=== PATIENT | male | born 1965 | race Caucasian/White ===

== ENCOUNTER 2021-08-09 20:04 | Emergency (ER) | payer BC ==
--- OUTSIDE RECORDS SUMMARY | 2021-08-09 20:06 | XMS REPORT | Continuity of Care Document ---
:1965 Author Organization [facility] t Address [address] [place] [address] Care Team Providers Name Role Phone Terrie Attending Clinician Unavailable Problems This patient has no known problems. Allergies, Adverse Reactions, Alerts Allergy Allergy Status Severity Reaction(s) Onset Inactive Treating Comm ents Source Name Type Date Date Clinician codeine Adverse Active Info Not [facility] Reaction Available [facility] Medications Ordered Filled Start Stop Current Ordering Indication Dosage Frequency Signature Comments Components Source Medication Medication Date Date Medication? Clinician (SIG) Name Name Crestor Crestor Yes Kaur [address] [facility] Lisinopril Lisinopril Yes Kaur [address] [facility] Procedures This patient has no known procedures. Encounters Start End Encounter Admission Attending Care Care Encounter Source Date/Time Date/Time Type Type Clinicians Facility Department ID 2021-08-07 Outpatient RADHA Falcon [facility] [id number] [facility] 09[facility]19:01 Kaur [facility] 2021-06-04 Outpatient RADHA Falcon [facility] [id number] [facility] 14:26:50 Kaur [id number] [facility] 2021-06-04 Outpatient RADHA Falcon [facility] [id number] [facility] 12:09:48 Kaur [id number] [facility] 2021-06-04 Outpatient RADHA Falcon [facility] [id number] [facility] 11:21:39 Kaur [id number] [facility] 2021-08-08 2021-08-08 ambulatory [facility] [id number] [facility] 2021-05-12 2021-05-12 ambulatory [facility] [id number] [facility] 2020-10-30 2020-10-30 Outpatient [facility] [id number] [facility] 2020-07-22 2020-07-22 [facility] [id number] [facility] 2020-04-12 2020-04-12 Outpatient [facility] [id number] [facility] 2020-01-17 2020-01-17 [facility] [id number] [facility] 13:44:00 13:44:00 t [facility]pat[facility] Clin[facility] 2019-10-12 2019-10-12 [facility] [id number] [facility] 11:00:00 11:00:00 t [facility] 2019-09-04 2019-09-04 [facility] [id number] [facility] 15:20:00 15:20:00 t [facility] Medicine l Medicine Outpati ent Clinics 2019-04-25 2019-04-25 [facility] [id number] [facility] 08:26:00 08:26:00 [facility] 2019-04-21 2019-04-21 [facility] [id number] [facility] 10:20:00 10:20:00 t [facility] Results This patient has no known results.
--- NOTE | 2021-08-09 20:56 | ER ---
Nurse's Notes [facility] Name: Guido Chavez Age: 56 yrs Sex: Male : 1965 Arrival Date: 08/09/2021 Time: 20:05 Bed 17 Private MD: Kaur Falcon Diagnosis: Periapical abscess without sinus Presentation: 08/09 20:27 Chief complaint: Patient states: tooth abscess to right side of mouth X 2 days. ss Coronavirus screen: At this time, the client does not indicate any symptoms associated with coronavirus-19. Ebola Screen: No symptoms or risks identified at this time. Initial Sepsis Screen: Does the patient meet any 2 criteria? No. Patient's initial sepsis screen is negative. Does the patient have a suspected source of infection? No. Patient's initial sepsis screen is negative. Risk Assessment: Do you want to hurt yourself or someone else? Patient reports no desire to harm self or others. Onset of symptoms was August 09, 2021 at 20:28. 20:27 Method Of Arrival: Ambulatory ss 20:27 Acuity: TERRELL 4 ss Triage Assessment: 20:30 General: Appears in no apparent distress. comfortable, Behavior is calm, cooperative, ss appropriate for age. Pain: Complains of pain in right buccal mucosa Pain does not radiate. Pain currently is 5 out of 10 on a pain scale. EENT: Reports pain in right buccal mucosa. Neuro: Level of Consciousness is awake, alert, obeys commands, Oriented to person, place, time, situation. Respiratory: Airway is patent Respiratory effort is even, unlabored. Historical: - Allergies: 20:28 Codeine; ss - PMHx: 20:28 Hypertensive disorder; ss - PSHx: 20:30 None; ss - Immunization history:: Adult Immunizations up to date, Client reports receiving the 2nd dose of the Covid vaccine. - Social history:: Smoking status: Patient reports the use of cigarette tobacco products, smokes two packs cigarettes per day. Patient uses alcohol, occasionally. Patient/guardian denies using street drugs. Screenin:46 Abuse screen: Denies threats or abuse. Denies injuries from another. Nutritional tk1 screening: No deficits noted. Tuberculosis screening: No symptoms or risk factors identified. Fall Risk None identified. Assessment: 20:46 General: Appears uncomfortable, well groomed, well developed, well nourished, Behavior tk1 is calm, cooperative, appropriate for age. Pain: Complains of pain in right ear, right nondenominational and right jaw Pain does not radiate. Pain currently is 10 out of 10 on a pain scale. Quality of pain is described as aching, Pain began 2-3 days ago. Is continuous. Neuro: Level of Consciousness is lethargic, Oriented to person, place, time, situation, Appropriate for age Fisher Mussel are equal bilaterally Moves all extremities. Gait is steady, Speech is normal, Edema on right side of face.. Cardiovascular: Denies chest pain, Capillary refill < 3 seconds is brisk in bilateral fingers. Respiratory: Airway is patent Respiratory effort is even, unlabored, Respiratory pattern is regular, symmetrical. GI: No deficits noted. No signs and/or symptoms were reported involving the gastrointestinal system. : No deficits noted. No signs and/or symptoms were reported regarding the genitourinary system. EENT: Dental caries noted in lower right first bicuspid (#28) and lower right second bicuspid (#29) Reports pain. Derm: Skin is red, to right side of face. Musculoskeletal: No deficits noted. No signs and/or symptoms reported regarding the musculoskeletal system. 21:10 Reassessment: Patient up for discharge. After meds given questions as to transportation tk1 home. Patient states, he does not have anyone to drive him home. JUAN LUIS Perales notified. 21:58 Reassessment: Patient's friend arrived for transportation home. tk1 Vital Signs: 20:27 BP 149 / 95; Pulse 102; Resp 18; Temp 98.4(TE); Pulse Ox 98% on R/A; Weight 65.77 kg; ss Height 5 ft. 5 in. (165.10 cm); Pain 7/10; 20:46 BP 159 / 93 RA Supine (auto/reg); Pulse 97 MON; Resp 20 S; Temp 98.2(O); Pulse Ox 96% tk1 on R/A; Pain 10/10; 22:00 Pain 8/10; tk1 20:27 Body Mass Index 24.13 (65.77 kg, 165.10 cm) ED Course: 20:05 Patient arrived in ED. am2 20:05 Kaur Falcon FNP-C is Private Physician. am2 20:28 Triage completed. ss 20:30 Arm band placed on right wrist. ss 20:40 Diaz Quiles NP is PHCP. pm1 20:40 Meliton Beck MD is Attending Physician. pm1 20:45 Kasey Cabrera is Primary Nurse. tk1 20:46 Patient has correct armband on for positive identification. Bed in low position. Call tk1 light in reach. Side rails up X2. Pulse ox on. NIBP on. 20:46 No provider procedures requiring assistance completed. tk1 21:58 Patient did not have IV access during this emergency room visit. tk1 Administered Medications: 21:04 Drug: [place] (HYDROcodone-acetaminophen) 10 mg-325 mg 1 tabs Route: PO; tk1 22:00 Follow up: Pain 8/10; Response: Pain is decreased tk1 21:08 Drug: Clindamycin 600 mg {Note: 2ml in right gluteus and 2ml in left gluteus.} Route: tk1 IM; Site: right gluteus; 22:00 Follow up: Response: No adverse reaction tk1 Outcome: 20:55 Discharge ordered by . pm1 21:58 Discharged to home with friend. tk1 21:58 Condition: stable 21:58 Discharge instructions given to patient, friend, Instructed on discharge instructions, follow up and referral plans. medication usage, Demonstrated understanding of instructions, follow-up care, wound care, Prescriptions given X 1. 22:00 Patient left the ED. tk1 Signatures: Ellen Francisco RN RN Diaz Quiles NP DIRECTOR FAMILY pm1 Lizbeth Whipple am2 Kasey Cabrera tk1 Corrections: (The following items were deleted from the chart) 20:31 20:28 Allergies: No Known Allergies; ss ss 20:31 20:28 Allergies: No Known Allergies; [facility] 20: 20:28 Home Meds: Codeine Oral; [facility] 20: 20:28 Home Meds: gabapentin oral; [facility] 20: 20:28 PMHx: Neuropathy; ss ss
--- NOTE | 2021-08-09 20:56 | EDPHYS ---
Physician Documentation [facility] Name: Guido Chavez Age: 56 yrs Sex: Male : 1965 Arrival Date: 08/09/2021 Time: 20:05 Bed 17 Private MD: Kaur Falcon ED Physician Meliton Beck HPI: 08/09 20:53 This 56 yrs old Male presents to ER via Ambulatory with complaints of Toothache. pm1 20:53 The patient presents with pain, swelling. The problem is located in the upper right pm1 second bicuspid. Onset: The symptoms/episode began/occurred 2 day(s) ago. Duration: The symptoms are continuous. Modifying factors: The symptoms are alleviated by nothing. Associated signs and symptoms: Pertinent negatives: dysphagia, fever, inability to eat, vomiting. Severity of symptoms: in the emergency department the symptoms are actually worse. The patient has experienced similar episodes in the past, a few times. The patient has not recently seen a physician. Historical: - Allergies: 20:28 Codeine; ss - PMHx: 20:28 Hypertensive disorder; ss - PSHx: 20:30 None; ss - Immunization history:: Adult Immunizations up to date, Client reports receiving the 2nd dose of the Covid vaccine. - Social history:: Smoking status: Patient reports the use of cigarette tobacco products, smokes two packs cigarettes per day. Patient uses alcohol, occasionally. Patient/guardian denies using street drugs. ROS: 20:53 Constitutional: Negative for fever, chills, and weight loss. pm1 20:53 Cardiovascular: Negative for chest pain, palpitations, and edema, Respiratory: Negative for shortness of breath, cough, wheezing, and pleuritic chest pain, MS/Extremity: Negative for injury and deformity, Skin: Negative for injury, rash, and discoloration. 20:53 ENT: Positive for dental pain, Negative for sore throat, hoarseness. 20:53 All other systems are negative. Exam: 20:53 Constitutional: This is a well developed, well nourished patient who is awake, alert, pm1 and in no acute distress. Head/Face: Normocephalic, atraumatic. 20:53 Skin: Warm, dry with normal turgor. Normal color with no rashes, no lesions, and no evidence of cellulitis. MS/ Extremity: Pulses equal, no cyanosis. Neurovascular intact. Full, normal range of motion. 20:53 ENT: External ear(s): no acute changes, Ear canal(s): no acute changes, TM's: no acute changes, Mouth: Lips: normal, moist, Oral mucosa: normal, pink and intact, moist, Gums: normal with healthy appearance, abscess, is not appreciated, Dental exam: abscess, is not appreciated, dental caries, that is severe, diffusely, gum swelling, not appreciated, missing teeth, diffusely, pain, specifically in the upper right second bicuspid (#4), Voice: no acute changes. 20:53 Neck: Exam negative for acute changes, External neck: is normal, ROM/movement: is normal, is supple. 20:53 Cardiovascular: Exam negative for acute changes, Rate: normal, Rhythm: regular, Pulses: no pulse deficits are appreciated, Heart sounds: normal. 20:53 Respiratory: Exam negative for acute changes, respiratory distress, shortness of breath. 20:53 Neuro: Exam negative for acute changes, Orientation: is normal, Mentation: is normal, Motor: is normal, moves all fours. Vital Signs: 20:27 BP 149 / 95; Pulse 102; Resp 18; Temp 98.4(TE); Pulse Ox 98% on R/A; Weight 65.77 kg; ss Height 5 ft. 5 in. (165.10 cm); Pain 7/10; 20:46 BP 159 / 93 RA Supine (auto/reg); Pulse 97 MON; Resp 20 S; Temp 98.2(O); Pulse Ox 96% tk1 on R/A; Pain 10/10; 22:00 Pain 8/10; tk1 20:27 Body Mass Index 24.13 (65.77 kg, 165.10 cm) ss MDM: 20:47 Patient medically screened. pm1 20:53 Data reviewed: vital signs. Data interpreted: Pulse oximetry: on room air is 98 %. pm1 Interpretation: normal. 20:54 Counseling: I had a detailed discussion with the patient and/or guardian regarding: the pm1 historical points, exam findings, and any diagnostic results supporting the discharge/admit diagnosis, the need for outpatient follow up, for definitive care, a dentist, Patient reports to me that he has a dentist, to return to the emergency department if symptoms worsen or persist or if there are any questions or concerns that arise at home. 20:54 ED course: Patient gets pain medications from pain management. pm1 Administered Medications: 21:04 Drug: [place] (HYDROcodone-acetaminophen) 10 mg-325 mg 1 tabs Route: PO; tk1 22:00 Follow up: Pain 8/10; Response: Pain is decreased tk1 21:08 Drug: Clindamycin 600 mg {Note: 2ml in right gluteus and 2ml in left gluteus.} Route: tk1 IM; Site: right gluteus; 22:00 Follow up: Response: No adverse reaction tk1 Disposition: 08/10 19:05 Co-signature as Attending Physician, Meliton Beck MD. [facility] Disposition Summary: 08/09/21 20:55 Discharge Ordered Location: Home pm1 Problem: new pm1 Symptoms: have improved pm1 Condition: Stable pm1 Diagnosis - Periapical abscess without sinus pm1 Followup: pm1 - With: Emergency Department - When: As needed - Reason: Worsening of condition Followup: pm1 - With: Private Physician - When: 2 - 3 days - Reason: Recheck today's complaints, Continuance of care, Re-evaluation by your physician Discharge Instructions: - Discharge Summary Sheet pm1 - Dental Abscess pm1 - Dental Pain pm1 - Diet and Dental Disease pm1 Forms: - Medication Reconciliation Form pm1 - Thank You Letter pm1 - Antibiotic Education pm1 - Prescription Opioid Use pm1 Prescriptions: - Clindamycin HCl 300 mg Oral Capsule - take 1 capsule by ORAL route every 6 hours for 10 days; 40 capsule; Refills: 0, pm1 Product Selection Permitted Signatures: Ellen Francisco, RN RN ss Diaz Quiles, OCCUPATIONAL HEALTH NURSE MANAGER OCCUPATIONAL HEALTH NURSE MANAGER pm1 Meliton Beck MD MD [facility] Kasey Cabrera tk1 Corrections: (The following items were deleted from the chart) 08/09 20: 20:28 Allergies: No Known Allergies; [facility] 20: 20:28 Allergies: No Known Allergies; [facility] : 20:28 Home Meds: Codeine Oral; [facility] 20: 20:28 Home Meds: gabapentin oral; [facility] : 20:28 PMHx: Neuropathy; [facility]
[2021-08-09 22:10] VITALS: BP 159/93; TEMP 98.2; O2SAT 96
== END 2021-08-09 22:00 | disposition home or self-care (01) ==
LOC: ER 20:04
DX: K04.7 Periapical abscess without sinus (principal); I10 Essential (primary) hypertension; F17.210 Nicotine dependence, cigarettes, uncomplicated; Z88.5 Allergy status to narcotic agent
CPT/HCPCS: 96372; 99283

== ENCOUNTER 2024-07-28 15:24 | Inpatient (IN) | payer OTHER ==
--- OUTSIDE RECORDS SUMMARY | 2024-07-28 15:28 | XMS REPORT | Continuity of Care Document ---
Author Name Unknown Address [address] [facility] [place] [address] [facility] Address [address] 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 Name Role Phone Kaur Falcon Attending Clinician Unavailable Payers Payer Name Policy Type Policy Number Effective Date Expirati on Date Source UMR 53 [id number] [facility] [place] [facility] 53 [id number] [facility] 6 [id number] [facility] Problems Condition Name Condition Details Condition Category Status Onset Date Resolution Date Last Treatment Date Treating Clinician Comments Source [id number] Dark brown urine Problem [facility] [id number] Gross hematuria Problem [facility] [id number] Cervicalgi a Problem [facility] [id number] Tobacco abuse counseling Problem [facility] [id number] Low back pain Problem [facility] [id number] Other chronic pain Problem [facility] [id number] Chills Problem [facility] [id number] Smoker Problem [facility] [id number] Essential (primary) hypertensi on Problem [facility] [id number] Cough Problem [facility] [id number] Pure hyperchole sterolemia Problem [facility] [id number] Impaired glucose metabolism Problem [facility] [id number] BPH loc w urin obs/LUTS Problem [facility] [id number] Psychophys iological insomnia Problem [facility] [id number] Establishi care with new doctor, encounter for Problem [facility] [id number] Abscess, cheek Problem [facility] Allergies, Adverse Reactions, Alerts Allergy Name Allergy Type Status Severity Reaction(s) Onset Date Inactive Date Treating Clinician Comments Source Codeine Codeine Active Unknown [facility] Social History Social Habit Start Date Stop Date Quantity Comments Source History of Tobacco Use Current Smoker [facility] Sex Assigned At [facility] Smoking Status Start Date Stop Date Source Current Smoker 2024-05-29 00:00:00 [facility] Heavy tobacco smoker 2023-07-25 00:00:00 [facility] Medications Ordered Medication Name Filled Medication Name Start Date Stop Date Current Medication? Ordering Clinician Indication Dosage Frequency Signature (SIG) Comments Components Source Diclofenac Sodium 75 MG Diclofenac Sodium 75 MG No Diclofenac Sodium 75 MG HYDROcodone -Acetaminop hen 10-325 MG HYDROcodone -Acetaminop hen 10-325 MG No HYDROcodon e-Acetamin ophen 10-325 MG Zolpidem Tartrate 10 MG Zolpidem Tartrate 10 MG No 1{table t_at_be dtime_a s_neede d} QD Zolpidem Tartrate 10 MG Gabapentin 600 MG Gabapentin 600 MG No Gabapentin 600 MG Lisinopril 10 MG Lisinopril 10 MG No 1{table t} QD Lisinopril 10 MG traMADol HCl 50 MG traMADol HCl 50 MG No 1{table t_as_ne eded} BID traMADol HCl 50 MG tiZANidine HCl 2 MG tiZANidine HCl 2 MG No tiZANidine HCl 2 MG Famotidine 20 MG Famotidine 20 MG No 1{table t_at_be dtime_a s_neede d} QD Famotidine 20 MG Omeprazole 40 MG Omeprazole 40 MG No 1{capsu le} BID Omeprazole 40 MG Rosuvastati n Calcium 10 MG Rosuvastati n Calcium 10 MG No 1{table t} Rosuvastat in Calcium 10 MG Iron (Ferrous Sulfate) 325 (65 Fe) MG Iron (Ferrous Sulfate) 325 (65 Fe) MG No 1{table t} Iron (Ferrous Sulfate) 325 (65 Fe) MG Zinc 30 MG Zinc 30 MG No 1{ table t} QD Zinc 30 MG Immunizations Ordered Immunization Name Filled Immunization Name Date Status Comments Source COVID-19 Vaccine (Davie) COVID-19 Vaccine (Davie) 2020-08-13 15:10:00 Completed [facility] COVID-19 Vaccine (Davie) COVID-19 Vaccine (Davie) 2020-08-13 15:10:00 Completed [facility] COVID-19 Vaccine (Davie) COVID-19 Vaccine (Davie) 2020-08-13 15:10:00 Completed [facility] COVID-19 Vaccine (Davie) COVID-19 Vaccine (Davie) Unknown Completed [facility] COVID-19 Vaccine (Davie) COVID-19 Vaccine (Davie) Unknown Completed [facility] COVID-19 Vaccine (Davie) COVID-19 Vaccine (Davie) Unknown Completed [facility] COVID-19 Vaccine (Davie) COVID-19 Vaccine (Davie) Unknown Completed [facility] COVID-19 Vaccine (Davie) COVID-19 Vaccine (Davie) Unknown Completed [facility] Vital Signs Vital Name Observation Time Observation Value Comments S ource height 2024-05-29 09:40:00 66 [in_i] Commo n [facility] weight 2024-05-29 09:40:00 132.0 [lb_av] Co mmon [facility] temperature 2024-05-29 09:40:00 98.6 [degF] Com mon [facility] bmi 2024-05-29 09:40:00 21.3 kg/m2 Commo n [facility] oximetry 2024-05-29 09:40:00 99 % Commo n [facility] respiratory rate 2024-05-29 09:40:00 16 /min Common [facility] blood pressure systolic 2024-05-29 09:40:00 138 mm[Hg] [facility] blood pressure diastolic 2024-05-29 09:40:00 85 mm[Hg] [facility] height 2023-12-02 09:40:00 66 [in_i] Commo n [facility] weight 2023-12-02 09:40:00 132.2 [lb_av] Co [facility] temperature 2023-12-02 09:40:00 99.0 [degF] Com mon [facility] bmi 2023-12-02 09:40:00 21.34 kg/m2 Comm on [facility] oximetry 2023-12-02 09:40:00 95 % Commo n [facility] respiratory rate 2023-12-02 09:40:00 16 /min [facility] blood pressure systolic 2023-12-02 09:40:00 119 mm[Hg] Common [facility] blood pressure diastolic 2023-12-02 09:40:00 84 mm[Hg] Common [facility] height 2023-04-20 11:20:00 66 [in_i] Commo n [facility] weight 2023-04-20 11:20:00 148 [lb_av] Comm on [facility] bmi 2023-04-20 11:20:00 23.89 kg/m2 Comm on [facility] height 2022-12-29 09:40:00 66 [in_i] Commo n [facility] weight 2022-12-29 09:40:00 128.2 [lb_av] Co mmon [facility] temperature 2022-12-29 09:40:00 97.2 [degF] Com [facility] bmi 2022-12-29 09:40:00 20.69 kg/m2 Comm on [facility] oximetry 2022-12-29 09:40:00 95 % Commo n [facility] respiratory rate 2022-12-29 09:40:00 15 /min [facility] blood pressure systolic 2022-12-29 09:40:00 100 mm[Hg] Common [facility] blood pressure diastolic 2022-12-29 09:40:00 62 mm[Hg] Common [facility] height 2022-10-23 10:20:00 66 [in_i] Commo n [facility] weight 2022-10-23 10:20:00 127.2 [lb_av] Co [facility] temperature 2022-10-23 10:20:00 99.0 [degF] Com [facility] bmi 2022-10-23 10:20:00 20.53 kg/m2 Comm on [facility] oximetry 2022-10-23 10:20:00 95 % Commo n [facility] respiratory rate 2022-10-23 10:20:00 16 /min [facility] blood pressure systolic 2022-10-23 10:20:00 137 mm[Hg] [facility] blood pressure diastolic 2022-10-23 10:20:00 80 mm[Hg] [facility] height 2022-04-22 10:40:00 66 [in_i] Commo n [facility] weight 2022-04-22 10:40:00 139.2 [lb_av] Co [facility] temperature 2022-04-22 10:40:00 98.2 [degF] Com [facility] bmi 2022-04-22 10:40:00 22.47 kg/m2 Comm on [facility] oximetry 2022-04-22 10:40:00 97 % Commo n [facility] respiratory rate 2022-04-22 10:40:00 17 /min Common [facility] blood pressure systolic 2022-04-22 10:40:00 120 mm[Hg] [facility] blood pressure diastolic 2022-04-22 10:40:00 68 mm[Hg] Common [facility] height 2022-01-21 10:00:00 66 [in_i] Commo n [facility] weight 2022-01-21 10:00:00 142.2 [lb_av] Co mmon [facility] temperature 2022-01-21 10:00:00 98.2 [degF] Com [facility] bmi 2022-01-21 10:00:00 22.95 kg/m2 Comm on [facility] oximetry 2022-01-21 10:00:00 96 % Commo n [facility] respiratory rate 2022-01-21 10:00:00 16 /min [facility] blood pressure systolic 2022-01-21 10:00:00 131 mm[Hg] [facility] blood pressure diastolic 2022-01-21 10:00:00 71 mm[Hg] Common [facility] height 2021-08-19 15:40:00 66 [in_i] Commo n [facility] weight 2021-08-19 15:40:00 138 [lb_av] Comm on [facility] temperature 2021-08-19 15:40:00 98.2 [degF] Com mon [facility] bmi 2021-08-19 15:40:00 22.27 kg/m2 Comm on [facility] oximetry 2021-08-19 15:40:00 99 % Commo n [facility] respiratory rate 2021-08-19 15:40:00 18 /min Common [facility] blood pressure systolic 2021-08-19 15:40:00 111 mm[Hg] [facility] blood pressure diastolic 2021-08-19 15:40:00 66 mm[Hg] [facility] oximetry 2021-08-13 09:40:00 99 % Commo n [facility] respiratory rate 2021-08-13 09:40:00 16 /min [facility] blood pressure systolic 2021-08-13 09:40:00 136 mm[Hg] Common [facility] blood pressure diastolic 2021-08-13 09:40:00 73 mm[Hg] [facility] height 2021-08-13 09:40:00 66 [in_i] Commo n [facility] weight 2021-08-13 09:40:00 136.2 [lb_av] Co [facility] temperature 2021-08-13 09:40:00 99.7 [degF] Com [facility] bmi 2021-08-13 09:40:00 21.98 kg/m2 Comm on [facility] height 2021-08-08 08:20:00 66 [in_i] Commo n [facility] weight 2021-08-08 08:20:00 141.6 [lb_av] Co [facility] temperature 2021-08-08 08:20:00 97.2 [degF] Com [facility] bmi 2021-08-08 08:20:00 22.85 kg/m2 Comm on [facility] oximetry 2021-08-08 08:20:00 96 % Commo n [facility] respiratory rate 2021-08-08 08:20:00 16 /min [facility] height 2021-05-12 14:00:00 66 [in_i] Commo n [facility] weight 2021-05-12 14:00:00 145 [lb_av] Comm on [facility] temperature 2021-05-12 14:00:00 98.1 [degF] Com mon [facility] bmi 2021-05-12 14:00:00 23.4 kg/m2 Commo n [facility] oximetry 2021-05-12 14:00:00 97 % Commo n [facility] respiratory rate 2021-05-12 14:00:00 16 /min [facility] blood pressure systolic 2021-05-12 14:00:00 132 mm[Hg] [facility] blood pressure diastolic 2021-05-12 14:00:00 76 mm[Hg] [facility] Encounters Start Date/Time End Date/Time Encounter Type Admission Type Attending [facility] Facility Care Department Encounter ID Source 2024-05-29 09:40:00 Outpatient [facility] [id number] [facility] 2024-05-25 08:05:00 Outpatient Kaur Falcon [facility] [id number] [facility] 2024-05-12 08:44:00 Outpatient [facility] [id number] [facility] 2024-03-10 08:43:00 Outpatient [facility] [id number] [facility] 2023-12-02 09:50:01 Outpatient Kaur Falcon [facility] [id number] [facility] 2023-11-19 10:02:00 Outpatient [facility] garcia [facility] [id number] [facility] 2023-07-22 09:42:00 Outpatient [facility] g[facility] [id number] [facility] 2023-02-18 08:35:00 Outpatient [place] garcia [facility] [id number] [facility] 2022-10-23 10:24:00 Outpatient Kaur Falcon [facility]C [facility] [id number] [facility] 2022-07-16 16:42:00 Outpatient Kaur Falcon [facility]C [facility] [id number] [facility] 2022-04-20 10:18:01 Outpatient Kaur Falcon [facility] [id number] [facility] 2022-01-19 10:34:00 Outpatient Kaur Falcon [facility] [id number] [facility] 2021-12-30 14:34:01 Outpatient Kaur Falcon [facility] [id number] [facility] 2021-08-15 10:03:01 Outpatient Kaur Falcon [facility] [id number] [facility] 2021-08-11 09:38:00 Outpatient Kaur Falcon [facility]C [facility] [id number] [facility] 2021-08-07 09:19:01 Outpatient Kaur Falcon [facility] [id number] [facility] 2021-06-04 14:26:50 Outpatient Kaur Falcon [facility] [id number] [facility] 2021-06-04 12:09:48 Outpatient Kaur Falcon [facility] [id number] [facility] 2021-06-04 11:21:39 Outpatient Kaur Falcon [facility]C [facility] [id number] [facility] 2024-05-29 00:00:00 2024-05-29 00:00:00 OFFICE VISIT ESTAB PT LEVEL 4 [facility]LMLC STL[facility]C [id number] [facility] 2024-05-15 00:00:00 2024-05-15 00:00:00 (TEL) STLMLC STL[facility]C [id number] [facility] 2023-12-09 00:00:00 2023-12-09 00:00:00 (TEL) STLMLC STL[facility]C [id number] [facility] 2023-12-02 00:00:00 2023-12-02 00:00:00 OFFICE VISIT ESTAB PT LEVEL 4 [facility]LMLC STL[facility]C [id number] [facility] 2023-11-04 00:00:00 2023-11-04 00:00:00 (TEL) STLMLC STLMLC [id number] [facility] 2023-04-20 00:00:00 2023-04-20 00:00:00 OFFICE VISIT ESTAB PT LEVEL 3 [facility]C STL[facility]C [id number] [facility] 2022-12-29 00:00:00 2022-12-29 00:00:00 OFFICE VISIT ESTAB PT LEVEL 3 [facility]LMLC STL[facility]C [id number] [facility] 2022-12-29 00:00:00 2022-12-29 00:00:00 (TEL) STLMLC STLMLC [id number] [facility] 2022-10-23 00:00:00 2022-10-23 00:00:00 OFFICE VISIT ESTAB PT LEVEL 4 [facility]LMLC STL[facility]C [id number] [facility] 2022-04-23 00:00:00 2022-04-23 00:00:00 (TEL) STLMLC STL[facility]C [id number] [facility] 2022-04-22 00:00:00 2022-04-22 00:00:00 OFFICE VISIT ESTAB PT LEVEL 4 [facility]C STL[facility]C [id number] [facility] 2022-01-21 00:00:00 2022-01-21 00:00:00 OFFICE VISIT EST PT LEVEL 3 [facility]C STL[facility]C [id number] [facility] 2021-08-19 00:00:00 2021-08-19 00:00:00 OFFICE VISIT EST PT LEVEL 3 [facility]C STL[facility]C [id number] [facility] 2021-08-13 00:00:00 2021-08-13 00:00:00 OFFICE VISIT EST PT LEVEL 3 [facility]C STL[facility] [id number] [facility] 2021-08-08 00:00:00 2021-08-08 00:00:00 OFFICE VISIT ESTAB PT LEVEL 4 [facility]C [facility] [id number] [facility] 2021-05-12 00:00:00 2021-05-12 00:00:00 OFFICE VISIT ESTAB PT LEVEL 4 [facility]C [facility]C [id number] [facility] 2020-10-30 00:00:00 2020-10-30 00:00:00 Outpatient [facility]C [facility] [id number] [facility] 2020-07-22 00:00:00 2020-07-22 00:00:00 Outpatient [facility] [id number] [facility] 2020-04-12 00:00:00 2020-04-12 00:00:00 Outpatient [facility]C [facility] [id number] [facility] 2020-01-17 13:44:00 2020-01-17 13:44:00 [facility] [id number] [facility] 2019-10-12 11:00:00 2019-10-12 11:00:00 [facility] [id number] [facility] 2019-09-04 15:20:00 2019-09-04 15:20:00 [facility] [id number] [facility] 2019-04-25 08:26:00 2019-04-25 08:26:00 [facility] [id number] [facility] 2019-04-21 10:20:00 2019-04-21 10:20:00 [facility] [id number] [facility] Results Test Description Test Time Test Comments Results Result Co mments Source COMPREHENSIVE METABOLIC PANEL(CMP)2023-01-08 00:00:00* Test Item Value Reference Range Interpretation Comme nts ALBUMIN (test code = 1751-7) 3.9 g/dL See_Comment N [Automated messa ge] The system which generated this result transmitted reference range: 3.6-5.1 g/dL. The reference range was not used to interpret this result as normal/abnormal. ALBUMIN/GLOBULIN RATIO (test code = 1759-0) 1.7 (calc) See_Comment N [Automated messa ge] The system which generated this result transmitted reference range: 1.0-2.5 (calc). The reference range was not used to interpret this result as normal/abnormal. ALKALINE PHOSPHATASE (test code = 6768-6) 64 U/L See_Comment N [Automated message] The system which generated this result transmitted reference range: 35-144 U/L. The reference range was not used to interpret this result as normal/abnormal. ALT (test code = 1742-6) 23 U/L See_Comment N [Automated messa ge] The system which generated this result transmitted reference range: 9-46 U/L. The reference range was not used to interpret this result as normal/abnormal. AST (test code = 1920-8) 19 U/L See_Comment N [Automated messa ge] The system which generated this result transmitted reference range: 10-35 U/L. The reference range was not used to interpret this result as normal/abnormal. BILIRUBIN, TOTAL (test code = 1975-2) 0.3 mg/dL See_Comment N [Automated message] The system which generated this result transmitted reference range: 0.2-1.2 mg/dL. The reference range was not used to interpret this result as normal/abnormal. BUN/CREATININE RATIO (test code = 3097-3) SEE NOTE: (calc) See_Comment [Automated message] The system which generated this result transmitted reference range: 6-22 (calc). The reference range was not used to interpret this result as normal/abnormal. CALCIUM (test code = 43954-8) 9.1 mg/dL See_Comment N [Automated messa ge] The system which generated this result transmitted reference range: 8.6-10.3 mg/dL. The reference range was not used to interpret this result as normal/abnormal. CARBON DIOXIDE (test code = 2027-9) 27 mmol/L See_Comment N [Automated messa ge] The system which generated this result transmitted reference range: 20-32 mmol/L. The reference range was not used to interpret this result as normal/abnormal. CHLORIDE (test code = 5-0) 106 mmol/L See_Comment N [Automated messa ge] The system which generated this result transmitted reference range: 98-110 mmol/L. The reference range was not used to interpret this result as normal/abnormal. CREATININE (test code = 2160-0) 0.99 mg/dL See_Comment N [Automated messa ge] The system which generated this result transmitted reference range: 0.70-1.30 mg/dL. The reference range was not used to interpret this result as normal/abnormal. GLOBULIN (test code = 19628-1) 2.3 g/dL (calc) See_Comment N [Automated message] The system which generated this result transmitted reference range: 1.9-3.7 g/dL (calc). The reference range was not used to interpret this result as normal/abnormal. GLUCOSE (test code = 2345-7) 88 mg/dL See_Comment N [Automated messa ge] The system which generated this result transmitted reference range: 65-139 mg/dL. The reference range was not used to interpret this result as normal/abnormal. POTASSIUM (test code = 2823-3) 4.3 mmol/L See_Comment N [Automated messa ge] The system which generated this result transmitted reference range: 3.5-5.3 mmol/L. The reference range was not used to interpret this result as normal/abnormal. PROTEIN, TOTAL (test code = 2885-2) 6.2 g/dL See_Comment N [Automated messa ge] The system which generated this result transmitted reference range: 6.1-8.1 g/dL. The reference range was not used to interpret this result as normal/abnormal. SODIUM (test code = 2951-2) 140 mmol/L See_Comment N [Automated messa ge] The system which generated this result transmitted reference range: 135-146 mmol/L. The reference range was not used to interpret this result as normal/abnormal. UREA NITROGEN (BUN) (test code = 3094-0) 14 mg/dL See_Comment N [Automated message] The system which generated this result transmitted reference range: 7-25 mg/dL. The reference range was not used to interpret this result as normal/abnormal. CULTURE, [id number] 00:00:00* Test Item Value Reference Range Interpretation Comme nts CULTURE, URINE (test code = 630-4) SPECIMEN NUMBER: [id number] COMPREHENSIVE METABOLIC PANEL(CMP)2022-11-09 00:00:00* Test Item Value Reference Range Interpretation Comme nts ALBUMIN (test code = 1751-7) 4.1 g/dL See_Comment N [Automated message] The system which generated this result transmitted reference range: 3.6-5.1 g/dL. The reference range was not used to interpret this result as normal/abnormal. ALBUMIN/GLOBULIN RATIO (test code = 1759-0) 1.7 (calc) See_Comment N [Automated message] The system which generated this result transmitted reference range: 1.0-2.5 (calc). The reference range was not used to interpret this result as normal/abnormal. ALKALINE PHOSPHATASE (test code = 6768-6) 72 U/L See_Comment N [Automated message] The system which generated this result transmitted reference range: 35-144 U/L. The reference range was not used to interpret this result as normal/abnormal. ALT (test code = 1742-6) 14 U/L See_Comment N [Automated message] The system which generated this result transmitted reference range: 9-46 U/L. The reference range was not used to interpret this result as normal/abnormal. AST (test code = 1920-8) 17 U/L See_Comment N [Automated message] The system which generated this result transmitted reference range: 10-35 U/L. The reference range was not used to interpret this result as normal/abnormal. BILIRUBIN, TOTAL (test code = 1975-2) 0.3 mg/dL See_Comment N [Automated message] The system which generated this result transmitted reference range: 0.2-1.2 mg/dL. The reference range was not used to interpret this result as normal/abnormal. BUN/CREATININE RATIO (test code = 3097-3) NOT APPLICABLE (calc) See_Comment [Automated message] The system which generated this result transmitted reference range: 6-22 (calc). The reference range was not used to interpret this result as normal/abnormal. CALCIUM (test code = 98663-0) 8.7 mg/dL See_Comment N [Automated message] The system which generated this result transmitted reference range: 8.6-10.3 mg/dL. The reference range was not used to interpret this result as normal/abnormal. CARBON DIOXIDE (test code = 8-9) 25 mmol/L See_Comment N [Automated message] The system which generated this result transmitted reference range: 20-32 mmol/L. The reference range was not used to interpret this result as normal/abnormal. CHLORIDE (test code = 2075-0) 103 mmol/L See_Comment N [Automated message] The system which generated this result transmitted reference range: 98-110 mmol/L. The reference range was not used to interpret this result as normal/abnormal. CREATININE (test code = 2160-0) 1.05 mg/dL See_Comment N [Automated message] The system which generated this result transmitted reference range: 0.70-1.30 mg/dL. The reference range was not used to interpret this result as normal/abnormal. GLOBULIN (test code = 67777-5) 2.4 g/dL (calc) See_Comment N [Automated message] The system which generated this result transmitted reference range: 1.9-3.7 g/dL (calc). The reference range was not used to interpret this result as normal/abnormal. GLUCOSE (test code = 2345-7) 99 mg/dL See_Comment N [Automated message] The system which generated this result transmitted reference range: 65-99 mg/dL. The reference range was not used to interpret this result as normal/abnormal. POTASSIUM (test code = 2823-3) 4.6 mmol/L See_Comment N [Automated message] The system which generated this result transmitted reference range: 3.5-5.3 mmol/L. The reference range was not used to interpret this result as normal/abnormal. PROTEIN, TOTAL (test code = 2885-2) 6.5 g/dL See_Comment N [Automated message] The system which generated this result transmitted reference range: 6.1-8.1 g/dL. The reference range was not used to interpret this result as normal/abnormal. SODIUM (test code = 2951-2) 137 mmol/L See_Comment N [Automated message] The system which generated this result transmitted reference range: 135-146 mmol/L. The reference range was not used to interpret this result as normal/abnormal. UREA NITROGEN (BUN) (test code = 3094-0) 24 mg/dL See_Comment N [Automated message] The system which generated this result transmitted reference range: 7-25 mg/dL. The reference range was not used to interpret this result as normal/abnormal. Abdomen 1 View (KUB)Abdomen 1 View (KUB)
[2024-07-28 17:24] LABS: Absolute Basophils 0.1 K/uL (0-0.5); Absolute Lymphocytes (CBC) 1.9 K/uL (0.7-4.9); Absolute Monocytes 0.7 K/uL (0.1-1.3); Absolute Neutrophil 14.1 K/uL (1.8-8.0); Basophils % 0.5 % (0-1.3); Eosinophils % 0.2 % (0-4.4); Hematocrit 44.1 % (39.6-49.0); Hemoglobin 14.9 g/dL (13.6-17.9); Lymphocytes % 11.3 % (15.3-44.8); MCH 32.7 pg (27.0-35.0); MCHC 33.8 g/dL (32.0-36.0); MCV 96.7 fL (80-100); MPV 6.5 fL (7.6-11.3); Monocytes % 4.2 % (3.3-12.3); Neutrophils % 83.8 % (41.7-73.7); Platelets 740 thou/uL (152-406); RBC Red Blood Cell Count 4.56 M/uL (4.33-5.43); Red Cell Distribution Width 14.3 % (12.1-15.2)
[2024-07-28 17:31] LABS: Albumin 3.9 g/dL (3.4-5.0); Albumin/Globulin Ratio 0.8 (1.1-1.8); Anion Gap 9.3 mEq/L (5.0-15.0); Bilirubin Total 0.4 mg/dL (0.2-1.0); Globulin 4.7 g/dL (2.3-3.5); Potassium 4.3 mEq/L (3.5-5.1); Protein, Total 8.6 g/dL (6.4-8.2)
--- NOTE | 2024-07-28 17:41 | RAD REPORT ---
EXAMINATION: CT ABDOMEN AND PELVIS WITH CONTRAST CLINICAL INDICATION: ABD PAIN TECHNIQUE: CT abdomen and pelvis was performed, after the administration of IV contrast, as per [facility] protocol. Axial, sagittal and coronal reconstructions were obtained. One or more of the following dose reduction techniques were used: Automated exposure control, adjustment of the mA and k V according to patient size, and iterative reconstruction. Unless otherwise specified, incidental findings do not require dedicated imaging follow-up. COMPARISON: No prior exam. FINDINGS: LOWER CHEST: The visualized lung bases are clear. LIVER: Normal in size and contour. No focal lesion. Grossly unremarkable gallbladder. SPLEEN: Normal size. No focal lesion. PANCREAS: No mass, ductal dilation, or julee-pancreatic fluid. ADRENALS: Normal; no mass. KIDNEYS: Normal size and contour. No hydronephrosis. GASTROINTESTINAL TRACT: No evidence of free air, significant intra-abdominal free fluid, bowel obstru ction or abscess. ICM segment of the sigmoid colon is decompressed and thickened with large diverticula. APPENDIX: Normal appendix. LYMPH NODES: No lymphadenopathy. MUSCULOSKELETAL: No acute or suspicious osseous abnormality. ADDITIONAL FINDINGS: Aortoiliac atherosclerosis. IMPRESSION: No acute finding demonstrated. There is a 5 cm segment of the sigmoid colon which is moderately thickened with multiple large divert icula present. This area would benefit by direct visualization with follow-up nonemergent colonoscopy.
[2024-07-28] MEDS ORDERED: MORPHINE 4 MG/ML SYR ONE ×2 (18:42→19:18)
[2024-07-28] MEDS ORDERED: MAGNES/ALUMIN/SIMET 30ML UCUP ONE (18:42)
[2024-07-28] MEDS ORDERED: ONDANSETRON 4 MG/2 ML VIAL ONE (18:42)
[2024-07-28] MEDS ORDERED: LIDOCAINE VISCOUS 2% 10ML ORAL SOLN ONE (18:42)
[2024-07-28] MEDS ORDERED: FAMOTIDINE 20 MG/2 ML VIAL IV ONE (18:43)
[2024-07-28] MEDS ORDERED: NA CHLORIDE 0.9% 1,000 ML ONE ×2 (18:43→23:14)
[2024-07-28 19:03] LABS: Sqamous Epithelial None Seen /HPF (None Seen); Urine Bacteria None Seen /HPF (<20); Urine Bilirubin NEGATIVE (Negative); Urine Blood 2+ (Negative); Urine Clarity Clear (Clear); Urine Color Colorless (Yellow); Urine Crystals Unidentified Few /HPF (None Seen); Urine Culture Reflex Order NOT NEEDED; Urine Glucose NEGATIVE (Negative); Urine Ketones 1+ (Negative); Urine Microscopic Reflex YN ORDER UMIC; Urine Mucus Slight /HPF (None Seen); Urine Nitrite NEGATIVE (Negative); Urine Protein NEGATIVE (Negative); Urine Urobilinogen Normal (Normal); Urine WBC <5 /HPF (<5); Urine Yeast (Budding) Trace /HPF (None Seen)
[2024-07-28 19:06] LABS: Specific Gravity > 1.030 (1.005-1.030)
[2024-07-28] MEDS ORDERED: lisinopriL 10 MG TAB ONE (19:18)
[2024-07-28 20:58] LABS: PT Prothrombin Time 12.4 SECONDS (10-13.0); Protime INR 1.09
[2024-07-28] MEDS ORDERED: METRONIDAZOLE 500mg IVPB 500 MG/100 ML BAG IV ONE (21:13)
[2024-07-28] MEDS ORDERED: CIPROFLOXACIN 400mg IV 400 MG/200 ML BAG IV ONE (21:13)
--- NOTE | 2024-07-28 22:18 | ER ---
Nurse's Notes [facility] Name: Guido Chavez Age: 59 yrs Sex: Male : 1965 Arrival Date: 07/28/2024 Time: 15:24 Bed 16 Private MD: Diagnosis: Colitis Presentation: 07/28 16:55 Chief complaint: Patient states: had egd done earlier today , hx of ulcers, having iw worse abd pain and has not been eating for 2 days. Coronavirus screen: At this time, the client does not indicate any symptoms associated with coronavirus-19. Ebola Screen: No symptoms or risks identified at this time. Initial Sepsis Screen: Does the patient meet any 2 criteria? HR > 90 bpm. Does the patient have a suspected source of infection? No. Patient's initial sepsis screen is negative. Risk Assessment: Do you want to hurt yourself or someone else? Patient reports no desire to harm self or others. Onset of symptoms was July 26, 2024. 16:55 Acuity: TERRELL 3 iw 16:55 Method Of Arrival: Ambulatory iw Historical: - Allergies: 16:56 Codeine; iw - PMHx: 16:56 Hypertensive disorder; iw - Immunization history:: Adult Immunizations not up to date. - Infectious Disease History:: Denies. - Social history:: Smoking status: Patient reports the use of cigarette tobacco products, smokes two packs cigarettes per day. Screenin:[facility] ED Fall Risk Assessment (Adult) History of falling in the last 3 months, me1 including since admission No falls in past 3 months (0 pts) Confusion or Disorientation No (0 pts) Intoxicated or Sedated No (0 pts) Impaired Gait No (0 pts) Mobility Assist Device Used No (0 pt) Altered Elimination No (0 pt) Score/Fall Risk Level 0 - 2 = Low Risk Maintained a safe environment, Provided non-skid footwear, Hourly rounding (assess needs \T\ fall precautionary measures) done. Abuse screen: Denies threats or abuse. Nutritional screening: No deficits noted. Tuberculosis screening: No symptoms or risk factors identified. Assessment: 19:01 General: Appears uncomfortable, slender, well developed, Behavior is calm, cooperative, me1 appropriate for age, Reports had egd done earlier today , hx of ulcers, having worse abd pain and has not been eating for 2 days. Pain: Complains of pain in abdomen Pain does not radiate. Pain currently is 7 out of 10 on a pain scale. Quality of pain is described as burning, sharp, Pain began gradually, 2-3 days ago. Is continuous. Neuro: Level of Consciousness is awake, alert, obeys commands, Oriented to person, place, time, situation, Appropriate for age. Cardiovascular: Patient's skin is warm and dry. Respiratory: Airway is patent Respiratory effort is even, unlabored, Respiratory pattern is regular, symmetrical. GI: Abdomen is non-distended, Bowel sounds present X 4 quads. Abd is soft X 4 quads. GI: Reports upper abdominal pain, anorexia. : No signs and/or symptoms were reported regarding the genitourinary system. EENT: No signs and/or symptoms were reported regarding the EENT system. Derm: Skin is intact, is healthy with good turgor, Skin is pink, warm \T\ dry. Musculoskeletal: No signs and/or symptoms reported regarding the musculoskeletal system. Vital Signs: 16:55 BP 185 / 105; Pulse 112; Resp 18; Temp 99; Pulse Ox 99% on R/A; Weight 67.13 kg; Height iw 5 ft. 6 in. ; Pain 7/10; 19:00 BP 182 / 107; Pulse 87; Resp 19; Pulse Ox 96% ; me1 19:22 Pain 6/10; hb 19:23 Pain 6/10; hb 20:00 BP 181 / 106; Pulse 90; Resp 17; Pulse Ox 97% ; me1 21:00 BP 154 / 93; Pulse 92; Resp 17; Pulse Ox 97% ; me1 22:00 BP 156 / 88; Pulse 85; Resp 18; Pulse Ox 96% ; me1 07/29 00:00 BP 127 / 83; Pulse 85; Resp 18; Pulse Ox 96% ; cp4 01:00 BP 128 / 83; Pulse 86; Resp 18; Pulse Ox 96% ; cp4 02:44 BP 132 / 91; Pulse 88; Resp 18; Pulse Ox 95% ; cp4 07/28 16:55 Body Mass Index 23.89 (67.13 kg, 167.64 cm) iw 07/28 16:55 Pain Scale: Adult iw 19:22 Pain Scale: Adult hb 19:23 Pain Scale: Adult hb ED Course: 07/28 15:25 Patient arrived in ED. im 15:28 Gerri Sher, ENMANUEL is [facility]. kb 15:28 Arben Ulloa MD is Attending Physician. kb 16:55 Radiology exam delayed due to lab results not completed at this time. (BUN/Creatinine) jc4 IV insertion attempt and/or patient not having appropriate IV at this time. 16:56 Triage completed. iw 17:31 CT Abd/Pelvis - IV Contrast Only In Process Unspecified. EDMS 18:39 Cece Gaspar, RN is Primary Nurse. hb 18:55 Urine collected: clean catch specimen, clear. Urinalysis w/ reflexes Sent. me1 19:01 No provider procedures requiring assistance completed. Inserted saline lock: 22 gauge me1 in right antecubital area, using aseptic technique. 19:01 Patient has correct armband on for positive identification. Bed in low position. Call me1 light in reach. Side rails up X 1. Provided Education on: POC. Verbalized understanding.. Client placed on continuous cardiac and pulse oximetry monitoring. NIBP monitoring applied. alarm security or surveillance monitor on. Pulse ox on. NIBP on. 20:37 Initial lab(s) drawn, by sc, sent to lab. First set of blood cultures drawn by sc. me1 20:42 Ptt, Activated Sent, Protime (+inr), Lactate w/ 2H reflex if indic., Blood Culture me1 Adult (2) Sent. 20:45 Second set of blood cultures drawn by sc. sc1 22:18 Navi Fierro MD is Hospitalizing Provider. kb 07/29 02:38 Patient admitted, IV remains in place. cp4 02:39 Arm band placed on right wrist. Patient placed in waiting room. cp4 Administered Medications: 07/28 18:54 Drug: Famotidine IVP 20 mg IVP once; dilute with 10 mL 0.9% NaCl; give over 2 minutes hb Route: IVP; Site: right antecubital; 19:22 Follow up: Response: No adverse reaction hb 18:54 Drug: GI Cocktail without - (Maalox PO 30 ml, Lidocaine Mucous Membrane 2 % 15 hb ml) PO once Route: PO; 19:22 Follow up: Pain 6/10 Adult; Response: No adverse reaction; Pain is decreased hb 18:55 Drug: Ondansetron IVP 4 mg IVP once; over 2 minutes Route: IVP; Site: right antecubital;hb 19:23 Follow up: Response: No adverse reaction; Nausea is decreased hb 18:55 Drug: morphine IVP or IV 4 mg IVP once over 4 mins Route: IVP; Infused Over: 4 mins; hb Site: right antecubital; 19:23 Follow up: Pain 6/10 Adult; Response: No adverse reaction; Pain is decreased hb 18:55 Drug: NS 0.9% IV 1000 ml IV at 1 bolus Per protocol; to be given as a bolus over 60 hb minutes Route: IV; Rate: 1 bolus; Site: right antecubital; 23:01 Follow up: Response: No adverse reaction; IV Status: Completed infusion me1 19:21 Drug: morphine IVP or IV 4 mg IVP once over 4 mins Route: IVP; Infused Over: 4 mins; hb Site: right antecubital; 20:49 Follow up: Response: No adverse reaction; Pain is decreased hb 19:21 Drug: Lisinopril PO 10 mg PO once Route: PO; hb 20:50 Follow up: Response: No adverse reaction hb 21:16 Drug: metroNIDAZOLE IVPB 500 mg 100 ml IVPB at 200 ml/hr once over 30 mins Volume: 100 hb ml; Route: IVPB; Rate: 200 ml/hr; Infused Over: 30 mins; Site: right antecubital; 21:54 Follow up: Response: No adverse reaction; IV Status: Completed infusion hb 21:54 Drug: Ciprofloxacin IVPB 400 mg 200 ml IVPB once over 60 mins Volume: 200 ml; Route: hb IVPB; Infused Over: 60 mins; Site: right antecubital; 23:01 Follow up: Response: No adverse reaction; IV Status: Completed infusion me1 Medication: 19:01 VIS not applicable for this client. hb Outcome: 22:18 Decision to Hospitalize by Provider. 07/29 02:38 Admitted to Med/surg accompanied by tech, via wheelchair, room 205, with chart, cp4 Condition: stable Instructed on the need for admit, 02:45 Patient left the ED. cp4 Signatures: Dispatcher [employer] Gerri Knox, ENMANUEL SALAS-Ellen Hernandez RN RN Cece Gaspar RN RN Lucita Hoyos Michelle, RN RN me1 Lana Hester cp4 Dheeraj Fontanez jc4 Corrections: (The following items were deleted from the chart) 07/28 19: 16:55 Chief complaint: Patient states: had egd done earlier today , hx of ulcers, hb having worse abd pain and has not been eating for 2 days iw : 19: General: Appears uncomfortable, slender, well developed, Behavior is calm, me1 cooperative, appropriate for age, Reports had egd done earlier today , hx of ulcers, having worse abd pain and has not been eating for 2 days 22: 19: Pain: Complains of pain in abdomen Pain does not radiate. Pain currently is 7 out me1 of 10 on a pain scale. Quality of pain is described as burning, sharp, Pain began gradually, 2-3 days ago. Is continuous, : 19: Neuro: Level of Consciousness is awake, alert, obeys commands, Oriented to sc1 person, place, time, situation, Appropriate for age : 19: Cardiovascular: Patient's skin is warm and dry. [facility] : 19:01 Respiratory: Airway is patent Respiratory effort is even, unlabored, Respiratory me1 pattern is regular, symmetrical, 22: 19: GI: Abdomen is non-distended, Bowel sounds present X 4 quads. Abd is soft X 4 me1 quads : 19:01 : No signs and/or symptoms were reported regarding the genitourinary system. [facility] : 19:01 GI: Reports upper abdominal pain, anorexia, [facility] : 19:01 EENT: No signs and/or symptoms were reported regarding the EENT system. [facility] : 19: Derm: Skin is intact, is healthy with good turgor, Skin is pink, warm \T\ dry. [facility] 22: 19:01 Musculoskeletal: No signs and/or symptoms reported regarding the musculoskeletal me1 system. 22: 19:00 BP 182 / 107; Pulse 87bpm; Resp 19bpm; Pulse Ox 96%; hb me1 22: 20:00 BP 181 / 106; Pulse 90bpm; Resp 17bpm; Pulse Ox 97%; hb me1 22:18 19:01 [facility] ED Fall Risk Assessment (Adult) History of falling in the last 3 months, [facility] including since admission No falls in past 3 months (0 pts) Confusion or Disorientation No (0 pts) Intoxicated or Sedated No (0 pts) Impaired Gait No (0 pts) Mobility Assist Device Used No (0 pt) Altered Elimination No (0 pt) Score/Fall Risk Level 0 - 2 = Low Risk Maintained a safe environment, Provided non-skid footwear, Hourly rounding (assess needs \T\ fall precautionary measures) done, 22:18 19:01 Abuse screen: Denies threats or abuse. [facility] 22:18 19:01 Nutritional screening: No deficits noted. [facility] 22:18 19:01 Tuberculosis screening: No symptoms or risk factors identified. [facility] 22:18 19:01 Patient has correct armband on for positive identification. Bed in low position. [facility] Call light in reach. Side rails up X 1. 22:18 19:01 Provided Education on: POC. Verbalized understanding.. [facility] 22:18 19:01 Client placed on continuous cardiac and pulse oximetry monitoring. NIBP sc1 monitoring applied. alarm security or surveillance monitor on. Pulse ox on. NIBP on. 22:19 18:55 Urinalysis+U.LAB.BRZ drawn and sent. [facility] 22:19 18:55 Urine collected: clean catch specimen, clear, [facility] 22:19 19:01 No provider procedures requiring assistance completed. [facility] 22:19 19:01 Inserted saline lock: 22 gauge in right antecubital area, using aseptic me1 technique. hb 22:19 20:42 PTT, ACTIVATED+COAG.LAB.BRZ drawn and sent. [facility] 22:19 20:42 PROTIME (+INR)+COAG.LAB.BRZ drawn and sent. [facility] 22:19 20:42 LACTATE+C.LAB.BRZ drawn and sent. [facility] 22:19 20:42 BLOOD CULTURE*+BA.LAB.BRZ drawn and sent. [facility] 22:19 20:37 Initial lab(s) drawn, by sc, sent to lab. First set of blood cultures drawn by [facility], 22:19 20:45 Second set of blood cultures drawn by sc, [facility]
--- NOTE | 2024-07-28 22:18 | EDPHYS ---
Physician Documentation [facility] Name: Guido Chavez Age: 59 yrs Sex: Male : 1965 Arrival Date: 07/28/2024 Time: 15:24 Bed 16 Private MD: ED Physician Arben Ulloa HPI: 07/28 16:46 This 59 yrs old Male presents to ER via Unassigned with complaints of Abdominal Pain, kb Neck Pain, >24Hrs Old, Back Pain. 16:46 Pt is a 59 year old male who presents for epigastric pain that radiates up chest and kb into back that started 2 weeks ago. States he had an upper GI this morning by Dr Francois and was told his ulcer is getting bigger. Was told to come to the ER if pain kept getting worse. States he sees a pain management dr for back and neck pain so they wouldn't give him anything for the pain from the office. States his pain dr doesn't work on Wednesday, Wednesday or Wednesday's so he couldn't get in touch with them. . Historical: - Allergies: 16:56 Codeine; iw - PMHx: 16:56 Hypertensive disorder; iw - Immunization history:: Adult Immunizations not up to date. - Infectious Disease History:: Denies. - Social history:: Smoking status: Patient reports the use of cigarette tobacco products, smokes two packs cigarettes per day. ROS: 16:46 Constitutional: As per HPI kb Exam: 16:46 Constitutional: This is a well developed, well nourished patient who is awake, alert, kb and in no acute distress. Head/Face: Normocephalic, atraumatic. ENT: Moist Mucous membranes Cardiovascular: Regular rate Respiratory: Respirations even and unlabored. No increased work of breathing. Talking in full sentences Back: No spinal tenderness. No costovertebral tenderness. Full range of motion. Skin: Warm, dry with normal turgor. Normal color. MS/ Extremity: Pulses equal, no cyanosis. Neurovascular intact. Full, normal range of motion. Neuro: Awake and alert, GCS 15, oriented to person, place, time, and situation. 16:46 Abdomen/GI: Inspection: abdomen appears normal, Bowel sounds: normal, Palpation: soft, in all quadrants, moderate abdominal tenderness, in all quadrants, Vital Signs: 16:55 BP 185 / 105; Pulse 112; Resp 18; Temp 99; Pulse Ox 99% on R/A; Weight 67.13 kg; Height iw 5 ft. 6 in. ; Pain 7/10; 19:00 BP 182 / 107; Pulse 87; Resp 19; Pulse Ox 96% ; me1 19:22 Pain 6/10; hb 19:23 Pain 6/10; hb 20:00 BP 181 / 106; Pulse 90; Resp 17; Pulse Ox 97% ; me1 21:00 BP 154 / 93; Pulse 92; Resp 17; Pulse Ox 97% ; me1 22:00 BP 156 / 88; Pulse 85; Resp 18; Pulse Ox 96% ; me1 07/29 00:00 BP 127 / 83; Pulse 85; Resp 18; Pulse Ox 96% ; cp4 01:00 BP 128 / 83; Pulse 86; Resp 18; Pulse Ox 96% ; cp4 02:44 BP 132 / 91; Pulse 88; Resp 18; Pulse Ox 95% ; cp4 07/28 16:55 Body Mass Index 23.89 (67.13 kg, 167.64 cm) iw 07/28 16:55 Pain Scale: Adult iw 19:22 Pain Scale: Adult hb 19:23 Pain Scale: Adult hb MDM: 07/28 15:28 Medical Screening Exam initiated kb 16:50 Data reviewed: vital signs, nurses notes. kb 22:53 Differential diagnosis: diverticulitis, gastritis, non-specific abd pain. Consideration kb of Admission/Observation Patient was admitted/placed on observation. Escalation of care including admission/observation considered. Management of patient was discussed with the following: Hospitalist: Dr. Fierro accepts patient for admission. Historians other than the Patient: Family Member: Nephew. Counseling: I had a detailed discussion with the patient and/or guardian regarding the historical points, exam findings, and any diagnostic results supporting the discharge/admit diagnosis, lab results, radiology results, the need for further work-up and treatment in the hospital. ED course: Discussed all results with patient. Discussed inpatient versus outpatient treatment. Patient states he feels like he should stay in the hospital due to pain. 07/28 16:51 Order name: CBC with Diff; Complete Time: 17:34 kb 07/28 16:51 Order name: CMP; Complete Time: 17:34 kb 07/28 16:51 Order name: Lipase; Complete Time: 17:34 kb 07/28 16:51 Order name: Urinalysis w/ reflexes; Complete Time: 19:09 kb 07/28 17:46 Order name: CREATININE WHOLE BLOOD; Complete Time: 17:52 EDMS 07/28 19:59 Order name: Blood Culture Adult (2) kb 07/28 19:59 Order name: Lactate w/ 2H reflex if indic.; Complete Time: 21:08 kb 07/28 19:59 Order name: Protime (+inr); Complete Time: 20:59 kb 07/28 19:59 Order name: Ptt, Activated; Complete Time: 20:59 kb 07/28 22:31 Order name: Basic Metabolic Panel EDMS 07/28 22:31 Order name: Urinalysis w/ reflexes EDMS 07/28 22:31 Order name: CBC with Automated Diff EDMS 07/28 22:31 Order name: CBC with Automated Diff EDMS 07/28 22:31 Order name: Comprehensive Metabolic Panel EDMS 07/28 22:31 Order name: Comprehensive Metabolic Panel EDRI 07/28 16:51 Order name: CT Abd/Pelvis - IV Contrast Only; Complete Time: 17:42 kb 07/28 19:59 Order name: EKG; Complete Time: 20:00 kb 07/28 22:31 Order name: CONS Physician Consult EDRI 07/28 16:51 Order name: IV Saline Lock; Complete Time: 17:08 kb 07/28 16:51 Order name: Labs collected and sent; Complete Time: 17:08 kb 07/28 19:59 Order name: O2 Per Protocol; Complete Time: 20:42 kb 07/28 19:59 Order name: O2 Sat Monitoring; Complete Time: 20:42 kb 07/28 19:59 Order name: Vital Signs; Complete Time: 20:42 kb Administered Medications: 18:54 Drug: Famotidine IVP 20 mg IVP once; dilute with 10 mL 0.9% NaCl; give over 2 minutes hb Route: IVP; Site: right antecubital; 19:22 Follow up: Response: No adverse reaction hb 18:54 Drug: GI Cocktail without - (Maalox PO 30 ml, Lidocaine Mucous Membrane 2 % 15 hb ml) PO once Route: PO; 19:22 Follow up: Pain 6/10 Adult; Response: No adverse reaction; Pain is decreased hb 18:55 Drug: Ondansetron IVP 4 mg IVP once; over 2 minutes Route: IVP; Site: right antecubital;hb 19:23 Follow up: Response: No adverse reaction; Nausea is decreased hb 18:55 Drug: morphine IVP or IV 4 mg IVP once over 4 mins Route: IVP; Infused Over: 4 mins; hb Site: right antecubital; 19:23 Follow up: Pain 6/10 Adult; Response: No adverse reaction; Pain is decreased hb 18:55 Drug: NS 0.9% IV 1000 ml IV at 1 bolus Per protocol; to be given as a bolus over 60 hb minutes Route: IV; Rate: 1 bolus; Site: right antecubital; 23:01 Follow up: Response: No adverse reaction; IV Status: Completed infusion me1 19:21 Drug: morphine IVP or IV 4 mg IVP once over 4 mins Route: IVP; Infused Over: 4 mins; hb Site: right antecubital; 20:49 Follow up: Response: No adverse reaction; Pain is decreased hb 19:21 Drug: Lisinopril PO 10 mg PO once Route: PO; hb 20:50 Follow up: Response: No adverse reaction hb 21:16 Drug: metroNIDAZOLE IVPB 500 mg 100 ml IVPB at 200 ml/hr once over 30 mins Volume: 100 hb ml; Route: IVPB; Rate: 200 ml/hr; Infused Over: 30 mins; Site: right antecubital; 21:54 Follow up: Response: No adverse reaction; IV Status: Completed infusion hb 21:54 Drug: Ciprofloxacin IVPB 400 mg 200 ml IVPB once over 60 mins Volume: 200 ml; Route: hb IVPB; Infused Over: 60 mins; Site: right antecubital; 23:01 Follow up: Response: No adverse reaction; IV Status: Completed infusion me1 Disposition Summary: 07/28/24 22:18 Hospitalization Ordered Notes: Hospitalization Status: Observation kb Provider: Navi Fierro Location: Telemetry/MedSurg (observation) kb Condition: Stable kb Problem: new kb Symptoms: are unchanged kb Bed/Room Type: Standard kb Room Assignment: 205(07/29/24 00:35) br2 Diagnosis - Colitis kb Forms: - Medication Reconciliation Form kb - SBAR form kb - Leadership Thank You Letter kb Addendum: 08/01/2024 11:20 I was immediately available for consultation during this patient's visit. I did not e c2 personally see the patient or discuss the patient with the MIL[facility]. . Signatures: Dispatcher [employer] Gerri Knox, JOSUE-Jude SALAS-Ellen Hernandez RN RN iw Cece Gaspar RN RN Arben Ulloa MD MD ec2 Trina Ordonez RN RN br2 Patrizia Pinto RN me1 Corrections: (The following items were deleted from the chart) 07/28 16:52 16:52 Abdomen Pelvis W Con+CT.RAD.BRZ ordered. [facility] 07/29 00:35 07/28 22:18 kb br2
[2024-07-28] MEDS ORDERED: ONDANSETRON 4 MG/2 ML VIAL IV PRN (22:25)
[2024-07-28] MEDS ORDERED: ACETAMINOPHEN 325 MG TABLET PO PRN (22:25)
[2024-07-28] MEDS ORDERED: MORPHINE 2 MG/ML SYR IV PRN (22:31)
--- NOTE | 2024-07-28 22:34 | P.HP ---
Certification for Inpatient Patient admitted to: Inpatient Patient will require the following post-hospital care: Home Health Services Practitioner: I am a practitioner with admitting privileges, knowledge of patient current condition, hospital course, and medical plan of care. Services: Services provided to patient in accordance with Admission requirements found in Title 42 Section 412.3 of the Code of Federal Regulations Patient History Date of Service: 07/29/24 Reason for admission: Abdominal Pain History of Present Illness: 59 yrs old Male with past medical history of hypertension and GERD and history of gastric ulcer and chronic back and neck pain brought to ER with abdominal pain and back pain. He presents for epigastric pain that radiates up chest and into back that started 2 weeks ago. States he had an upper GI this morning by Dr Francois and was told his ulcer is getting bigger. Was told to come to the ER if pain kept getting worse. . Patient denies any nausea or vomiting. No sick contacts. Denies any melena or Hematemesis Patient was assessed in the ER and is admitted for further management of colitis Allergies No Known Allergies Allergy (Unverified 07/29/24 05:07) Home medications list reviewed: Yes Home Medications: Cyclobenzaprine [Flexeril*] 10 mg PO TID PRN 04/20/17 Gabapentin 600 mg PO TID 04/20/17 Hydrocodone/Acetaminophen [Hydrocodone-Acetamin 5-325 mg] 1 each PO Q6HP PRN 04/20/17 Tramadol HCl [Ultram] 50 mg PO TIDP PRN 04/20/17 Zolpidem Tartrate [Ambien*] 10 mg PO BEDTIME 04/20/17 lisinopriL [Zestril] 10 mg PO DAILY 04/20/17 Ciprofloxacin HCl [Cipro] 500 mg PO BID #14 tab 07/29/24 Pantoprazole [Protonix Tab] 40 mg PO BID #60 tab 07/29/24 Rosuvastatin [Crestor*] 10 mg PO DIRECTED 07/29/24 Sucralfate [Carafate*] 1 gm PO ACHS #120 tab 07/29/24 metroNIDAZOLE [Flagyl] 500 mg PO Q8H #21 tab 07/29/24 - Past Medical/Surgical History Past Medical History: Reviewed- Non-Contributory -: HTN Past Surgical History: Reviewed- Non-Contributory - Family History Family History: Reviewed- Non-Contributory - Family History Mother -: Hypertension Father -: Hypertension, Lung disease - Social History Smoking Status: Never smoker Review of Systems 10-point ROS is otherwise unremarkable Physical Examination - Vital Signs Temperature: 97.2 F Blood Pressure: 128/76 Pulse: 70 Respirations: 18 Pulse Ox (%): 94 - Physical Exam General: Alert, In no apparent distress, Oriented x3 HEENT: Atraumatic, Normocephalic Neck: Supple, No LAD Respiratory: Clear to auscultation bilaterally, Normal air movement Cardiovascular: Regular rate/rhythm, Normal S1 S2 Capillary refill: <2 Seconds Gastrointestinal: Soft and benign, W/out hepatosplenomegaly, Tenderness Musculoskeletal: No clubbing, No swelling Integumentary: No rashes, No tenderness/swelling Neurological: Normal speech, Normal strength at 5/5 x4 extr Lymphatics: No axilla or inguinal lymphadenopathy - Studies Laboratory Data (last 24 hrs) 07/28/24 07/28/24 07/28/24 20:37 17:06 17:06 WBC 16.90 H Hgb 14.9 Hct 44.1 Plt Count 740 H PT 12.4 INR 1.09 APTT 35.0 Sodium 131 L Potassium 4.3 BUN 14 Creatinine 0.99 Glucose 115 H Total Bilirubin 0.4 AST 15 ALT 22 Alkaline Phosphatase 94 Lipase 29 Assessment and Plan - Plan Colitis CT showing Sigmoid Colitis Pain Control Pain Control Antibiotics Surgical Consult Need Outpatient Follow up with GI Hypertension Antihypertensives titrated Continue home medications and titrate as needed Hyperlipidemia Continue statin Chronic pain Pain control Gastric ulcer Status post EGD this morning by Dr. Nuñez Advised to follow-up with surgery as outpatient. Continue home medications Titrate as needed GI/DVT prophylaxis Advanced directive full code Discharge Plan: Home Plan to discharge in: 48 Hours - Advance Directives Does patient have a Living Will: No Does patient have a Durable POA for Healthcare: No - Code Status/Comfort Care Code Status: Full Code Time Spent Managing Pts Care (In Minutes): 48
[2024-07-28] MEDS: NA CHLORIDE 0.9% 1,000 ML IV SCH (23:00)
[2024-07-28 23:11] VITALS: BMI 23.8
[2024-07-29] MEDS: METRONIDAZOLE 500mg IVPB 500 MG/100 ML BAG IV SCH (01:00)
[2024-07-29] MEDS: HYDROCODONE/APAP 5/325 MG TAB PO PRN (03:15)
[2024-07-29 03:21] VITALS: O2SAT 95
[2024-07-29 06:26] LABS: Absolute Basophils 0.1 K/uL (0-0.5); Absolute Eosinophils 0.1 K/uL (0-0.5); Absolute Lymphocytes (CBC) 2.7 K/uL (0.7-4.9); Absolute Monocytes 0.8 K/uL (0.1-1.3); Absolute Neutrophil 8.7 K/uL (1.8-8.0); Basophils % 0.5 % (0-1.3); Eosinophils % 1.1 % (0-4.4); Hematocrit 37.7 % (39.6-49.0); Hemoglobin 12.9 g/dL (13.6-17.9); Lymphocytes % 21.5 % (15.3-44.8); MCH 33.1 pg (27.0-35.0); MCHC 34.1 g/dL (32.0-36.0); MPV 6.6 fL (7.6-11.3); Monocytes % 6.8 % (3.3-12.3); Neutrophils % 70.1 % (41.7-73.7); Platelets 595 thou/uL (152-406); RBC Red Blood Cell Count 3.89 M/uL (4.33-5.43); Red Cell Distribution Width 14.2 % (12.1-15.2)
[2024-07-29 06:43] LABS: ALT/SGPT 18 U/L (16-61); Albumin/Globulin Ratio 0.8 (1.1-1.8); Alkaline Phosphatase 75 U/L (45-117); Anion Gap 7.1 mEq/L (5.0-15.0); BUN Blood Urea Nitrogen 10 mg/dL (7-18); Bicarbonate 27 mEq/L (21-32); Bilirubin Total 0.3 mg/dL (0.2-1.0); Globulin 3.7 g/dL (2.3-3.5); Glomerular Filtration Rate 102 ml/min (=/>90); Glucose Level 109 mg/dL (74-106); Potassium 4.1 mEq/L (3.5-5.1); Protein, Total 6.7 g/dL (6.4-8.2); Sodium Level 136 mEq/L (136-145)
[2024-07-29 06:50] LABS: AST/SGOT < 10 U/L (15-37)
[2024-07-29] MEDS: CEFTRIAXONE 1,000 MG in NA CHLORIDE 0.9% 50 ML IVPB SCH (08:13)
[2024-07-29] MEDS: ENOXAPARIN 40 MG/0.4 ML SQ SCH (08:14)
[2024-07-29] MEDS: FLU (Fluarix Triv) TS24-25(6MOS UP)/PF 45 MCG/0.5 ML Syringe IM ONE (08:45)
[2024-07-29 08:53] LABS: Atypical Lymphocytes 1 %; Differential Total Cells Count 100; Lymphocytes 22 % (15-42); Monocytes 7 % (0-10); Platelet Estimate INCR; Segmented Neutrophils 68 % (40-80)
[2024-07-29 08:54] LABS: Blood Morphology Comment NOT SEEN (NOT SEEN)
--- NOTE | 2024-07-29 13:18 | CON ---
Date of Consultation: 07/29/2024 Diagnoses: Gastric ulcer, abdominal pain. History Of Present Illness: This is a case of a 59-year-old patient, seen by Dr. Francois outside, wor ked up for the gastric ulcer, recently having endoscopies, seeing the gastric ulcer that he was told that if the pain in the epigastric area get worse, come to the ER immediately. He felt he was worse. Yesterday, he comes to the ER. He feels better now. He states pain was mainly in the upper abdome n, but during the workup, the patient was also found to have something that may be diverticulitis in the sigmoid colon. He has no colonoscopies in long time. He says he was due for colonoscopy. They have not been able to do so, so he does not know much about the condition of his colon. He has not h eard about diverticulitis before. The area of the left lower quadrant is not tender at this moment, so may be an incidental finding, but at the same time I explained to him that neoplasia sometimes may have appearance like this, so he has to make sure that when he gets discharged, he follow up with Dr Jemal Francois for that. Today, he denies any nausea or vomiting. The pain got better. He denies eating anything out of usual. Review of Systems: Denies any melena, any dysuria, hematuria, hematochezia, or melena. Denies any recent traveling out of the country. Denies any family member sick at home. The pain got better. Allergies: CODEINE. Medications: Reviewed including Flexeril, hydrocodone, Zanaflex, and Ambien. Past Medical History: Gastric ulcers. Past Surgical History: None. Social History: He never smoke. He does not drink alcohol. Physical Examination: Vital Signs: Reviewed. General: The patient is awake, alert, in no distress. Oriented x3. HEENT: Pupils are equal and reactive. Anicteric. Neck: Supple. Chest: Clear. Abdomen: Soft and depressible. No guarding or rebound. His epigastric pain is better. There is no guarding or rebound in the left lower quadrant. Extremities: Good capillary refill. Imaging Data: CAT scan of the abdomen and pelvis reviewed with the patient, interpreted by Dr. Joshua as an area of the sigmoid colon showed some swelling. There is also diverticulum in that area. Norm al appendix and that area of the sigmoid colon that is thickness about 5 cm. Assessment: This is a 59-year-old patient with multiple problems as we described above. He has been worked up for gastric ulcers that have also this finding on the left lower quadrant, although he is asymptomatic in that region and still needs to be addressed. From the surgical standpoint, we plan n o surgery at this moment. We explained to him the option for gastric ulcer perforation and also dive rticular perforation. We discussed with him diet, ways how to treat this, how important to take his antibiotics for his possible diverticulitis, but then he has the best guide for this was Dr. Alessandro maharaj basically will continue the workup of his colon. One believe it is safe enough to do so. He wa s advised also the importance of diet, not only for his gastric ulcer but his diverticulum. He agree . He is in no pain at this moment, so they are going to give him a diet and then proceed accordingly . LEONOR/PRUDENCE Voice ID: [id number] Report ID: [id number]
--- NOTE | 2024-07-29 13:51 | P.DS ---
Admission Date: 07/28/24 Discharge Date: 07/29/24 Disposition: ROUTINE DISCHARGE Discharge Condition: FAIR Reason for Admission: Abdominal Pain Brief History of Present Illness: 59 yrs old Male with past medical history of hypertension and GERD and history of gastric ulcer and chronic back and neck pain brought to ER with abdominal pain and back pain. Patient stated he had an upper GI by Dr Francois and was told his ulcer is getting bigger. Was told to come to the ER if pain kept getting worse. Patient denied any melena or hematemesis. CT abdomen and pelvis done in the ED showed a 5 cm segment of the sigmoid colon which is moderately thickened with multiple large diverticula present. Patient was hospitalized for further management. Hospital Course: Diagnosis Epigastric pain Gastric ulcer Sigmoid diverticula Chronic neck pain. Hyponatremia Patient admitted to the medical floor and started on IV Cipro and Flagyl, evaluated by Surgery Dr. Oseguera who recommended outpatient monitoring regarding a diverticular, and to follow-up with Dr. Francois as outpatient for colonoscopy. Patient tolerated liquid diet. He is discharged with oral antibiotics, given prescription for Protonix and sucralfate. Patient informed he needs to follow-up with Dr. Kamarading any biopsies and bacterial culture taken during his endoscopy for further treatment. Patient voiced understanding. He is also informed to avoid NSAIDs. Vital Signs/Physical Exam: Temp Pulse Resp BP Pulse Ox 97.8 F 94 H 18 142/89 H 97 07/29/24 12:00 07/29/24 12:00 07/29/24 12:00 07/29/24 12:00 07/29/24 12:00 General: Alert, In no apparent distress, Oriented x3 HEENT: Mucous membr. moist/pink Neck: Supple, JVD not distended Respiratory: Clear to auscultation bilaterally, Normal air movement Cardiovascular: No edema, Regular rate/rhythm, Normal S1 S2 Gastrointestinal: Normal bowel sounds, Soft and benign, Non-distended, Tenderness (Epigastric) Musculoskeletal: No swelling Neurological: Normal strength at 5/5 x4 extr Laboratory Data at Discharge: WBC 12.50 thou/uL (4.3-10.9) H 07/29/24 05:56 Hgb 12.9 g/dL (13.6-17.9) L D 07/29/24 05:56 Hct 37.7 % (39.6-49.0) L 07/29/24 05:56 Plt Count 595 thou/uL (152-406) H 07/29/24 05:56 PT 12.4 SECONDS (10-13.0) 07/28/24 20:37 INR 1.09 07/28/24 20:37 APTT 35.0 SECONDS (27.2-37.4) 07/28/24 20:37 Sodium 136 mEq/L (136-145) D 07/29/24 05:56 Potassium 4.1 mEq/L (3.5-5.1) 07/29/24 05:56 BUN 10 mg/dL (7-18) 07/29/24 05:56 Creatinine 0.79 mg/dL (0.70-1.30) 07/29/24 05:56 Glucose 109 mg/dL (74-106) H 07/29/24 05:56 Total Bilirubin 0.3 mg/dL (0.2-1.0) 07/29/24 05:56 AST < 10 U/L (15-37) L 07/29/24 05:56 ALT 18 U/L (16-61) 07/29/24 05:56 Alkaline Phosphatase 75 U/L (45-117) D 07/29/24 05:56 Lipase 29 U/L (13-75) 07/28/24 17:06 Home Medications: Cyclobenzaprine [Flexeril*] 10 mg PO TID PRN 04/20/17 Gabapentin 600 mg PO TID 04/20/17 Hydrocodone/Acetaminophen [Hydrocodone-Acetamin 5-325 mg] 1 each PO Q6HP PRN 04/20/17 Tramadol HCl [Ultram] 50 mg PO TIDP PRN 04/20/17 Zolpidem Tartrate [Ambien*] 10 mg PO BEDTIME 04/20/17 lisinopriL [Zestril] 10 mg PO DAILY 04/20/17 Ciprofloxacin HCl [Cipro] 500 mg PO BID #14 tab 07/29/24 Pantoprazole [Protonix Tab] 40 mg PO BID #60 tab 07/29/24 Rosuvastatin [Crestor*] 10 mg PO DIRECTED 07/29/24 Sucralfate [Carafate*] 1 gm PO ACHS #120 tab 07/29/24 metroNIDAZOLE [Flagyl] 500 mg PO Q8H #21 tab 03/22/25 New Medications: Sucralfate [Carafate*] 1 gm PO ACHS #120 tab Ciprofloxacin HCl [Cipro] 500 mg PO BID #14 tab metroNIDAZOLE [Flagyl] 500 mg PO Q8H #21 tab Pantoprazole [Protonix Tab] 40 mg PO BID #60 tab Diet: AHA Activity: Ad steven Followup: NONE,NONE [Primary Care Provider] - Lukas Francois MD [ASSOCIATE-ACTIVE - CAN ADMIT] - 1-2 Weeks Time spent managing pt's care (in minutes): 34
[2024-07-29 23:47] VITALS: BP 128/76; TEMP 97.2
== END 2024-07-29 18:05 | disposition home or self-care (01) | DRG 384 ==
LOC: ER 15:24 → ERHOLD 22:25 → 2ND 07-29 01:54
PROVIDERS: ADMIT Family Medicine; ATTEND Internal Medicine
DX: K25.9 Gastric ulcer, unspecified as acute or chronic, without hemorrhage or perforation (principal); E87.1 Hypo-osmolality and hyponatremia; K57.32 Diverticulitis of large intestine without perforation or abscess without bleeding; K52.9 Noninfective gastroenteritis and colitis, unspecified; I10 Essential (primary) hypertension; E78.5 Hyperlipidemia, unspecified; M54.2 Cervicalgia; G89.29 Other chronic pain; F17.210 Nicotine dependence, cigarettes, uncomplicated; Z88.5 Allergy status to narcotic agent; Z79.899 Other long term (current) drug therapy
CPT/HCPCS: 36415; 74177; 80053; 81001; 82565; 83605; 83690; 85025; 85610; 85730; 87040; 96361; 96365; 96367; 96375; 99285; G0378; J0696; J0744; J1650; J2405; J7030; Q9967